=== PATIENT | male | born 1980 | race Caucasian/White ===

== ENCOUNTER 2018-01-04 03:43 | Emergency (ER) ==
[2018-01-04 03:57] VITALS: BP 112/77; TEMP 98.6; BMI 28.8
[2018-01-04] MEDS ORDERED: SODIUM CHLORIDE 500 ML IV STA ×2 (05:04→09:40)
--- NOTE | 2018-01-04 05:07 | ED.PDOC ---
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 goes to [facility]. Time Seen by Physician: 05:05 Mode of Arrival: Walk-In Information Source: Patient, Family Nursing and Triage Documentation Reviewed and Agree: Yes Reviewed sepsis parameters & appropriate labs ordered?: No System Inflammatory Response Syndrome: Not Applicable <LUCILLE OSBORNE - Last Filed: 01/04/18 07:53> <YAMILEX HARDIN - Last Filed: 01/04/18 10:10> ED Provider: Dr. YAMILEX HARDIN Chief Complaint: Fever Primary Care Provider: GREG ADAMS Sepsis Protocol: For patient's 13 years and over: Temp is 96.8 and below OR 101 and greater Pulse >90 BPM Resp >20/minute Acutely Altered Mental Status Are patient's symptoms suggestive of a new infection, such as: -Pneumonia -Skin, Soft Tissue -Endocarditis -UTI -Bone, Joint Infection -Implantable Device -Acute Abdominal Infection -Wound Infection -Meningitis -Blood Stream Catheter Infection -Unknown Miscellaneous Complaint Exam - Febrile Illness/Adult Complaint/Exam Symptoms Are: Still present Timing: Constant Episodes Lasting: Seconds Initial Severity: Moderate Current Severity: None Aggravating: Reports: None Alleviating: Reports: OTC Meds Associated Signs and Symptoms: Reports: Fluid intake. Denies: Headache, Short of air, Cough, Sore throat, Nausea, Vomiting, Chills, Diaphoresis, Dysuria, Arthralgia, Stiff neck, Myalgia, Rash, Altered mental status Pseudomonas Risk Factors: Reports: None Serious Bacterial Infection Risk Factors: Reports: Chemotherapy Current Antibiotic Use: No Related Surgical History: None Differential Diagnoses: Sepsis, Viremia Quality Indicators For Pneumonia/CAP: Blood Cultures-SCU admit <LUCILLE OSBORNE - Last Filed: 01/04/18 07:53> Review of Systems - Review Of Systems Constitutional: Reports: Fever, Malaise, Weakness Eyes: Reports: No symptoms Ears, Nose, Mouth, Throat: Reports: No symptoms Respiratory: Reports: No symptoms Cardiac: Reports: No symptoms GI: Reports: No symptoms : Reports: No symptoms Musculoskeletal: Reports: No symptoms Skin: Reports: No symptoms Neurological: Reports: No symptoms Endocrine: Reports: No symptoms Hematologic/Lymphatic: Reports: No symptoms All Other Systems: Reviewed and Negative <LUCILLE OSBORNE - Last Filed: 01/04/18 07:53> Past Medical History - Past Medical History Previously Healthy: Yes Endocrine: Reports: None Cardiovascular: Reports: None Respiratory: Reports: None Hematological: Reports: None Gastrointestinal: Reports: None Genitourinary: Reports: None Neuro/Psych: Reports: None Musculoskeletal: Reports: None Cancer: Reports: Other (metastatin testicular cancerm dr duque) - Surgical History General Surgical History: Reports: None - Family History Family History: Reports: None - Social History Smoking Status: Never smoker Hx Substance Use: No Alcohol Screening: None - Immunizations Tetanus Shot up to Date: Yes (2010) <LUCILLE OSBORNE - Last Filed: 01/04/18 07:53> Physical Exam - Physical Exam Appearance: Ill-appearing Eyes: JOSE LUIS, EOMI, Conjunctiva clear ENT: Ears normal, Nose normal, Oropharynx normal Respiratory: Airway patent, Breath sounds clear, Breath sounds equal, Respirations nonlabored Cardiovascular: RRR, Pulses normal, No rub, No murmur GI/: Soft, Nontender, No masses, Bowel sounds normal, No Organomegaly Musculoskeletal: Normal strength, ROM intact, No edema, No calf tenderness Skin: Warm, Dry, Normal color Neurological: Sensation intact, Motor intact, Reflexes intact, Cranial nerves intact, Alert, Oriented Psychiatric: Affect appropriate, Mood appropriate <LUCILLE OSBORNE - Last Filed: 01/04/18 07:53> Re-Evaluation - Re-Evaluation Time of Re-Evaluation: 07:50 (Assumed management from Dr Smith. He has spoken to oncologist at in [place]. Was recommended to transfer to hospital where patients oncologist is located. Patient ok'd transfer to [facility] [place]. ) Status: Unchanged Vital Signs Stable: Yes Appearance: NAD Lungs: Clear Skin: Warm and Dry Neuro: Alert and Oriented X3 CV: RRR Additional Comments: Awaiting for arrangements for transfer to [facility] in [place]. <YAMILEX HARDIN - Last Filed: 01/04/18 10:10> Critical Care Note - Critical Care Note Total Time (mins): 20 <LUCILLE OSBORNE - Last Filed: 01/04/18 07:53> Course - Course Hematology/Chemistry: 01/04/18 05:15 01/04/18 05:15 <LUCILLE OSBORNE - Last Filed: 01/04/18 07:53> - Course Hematology/Chemistry: 01/04/18 05:15 01/04/18 05:15 <YAMILEX HARDIN - Last Filed: 01/04/18 10:10> - Course Orders, Labs, Meds: Lab Review 01/04/18 01/04/18 01/04/18 05:15 05:15 05:15 WBC 0.67 L* RBC 4.27 L Hgb 13.1 L Hct 36.1 L MCV 84.5 MCH 30.7 MCHC 36.3 H RDW Coeff of Oswaldo 11.9 Plt Count 84 L Immature Gran % (Auto) 1.5 Neut % (Auto) 2.9 Lymph % (Auto) 23.9 [place] % (Auto) 67.2 H Eos % (Auto) 3.0 Baso % (Auto) 1.5 Immature Gran # (Auto) 0.0 Neut # 0.0 L Lymph # 0.2 L [place] # 0.5 Eos # 0.0 Baso # 0.0 Sodium 134 L Potassium 3.0 L Chloride 96 L Carbon Dioxide 25 Anion Gap 16.0 BUN 22 H Creatinine 1.40 H Estimated GFR (MDRD) 56.00 BUN/Creatinine Ratio 15.71 Glucose 113 H Lactic Acid 7.7 Calcium 9.3 Total Bilirubin 1.1 AST 11 L ALT 34 Alkaline Phosphatase 59 Total Protein 7.0 Albumin 3.0 L Globulin 4.0 Albumin/Globulin Ratio 0.75 Procalcitonin Urine Color Urine Clarity Urine pH Ur Specific Willits Urine Protein Urine Glucose (UA) Urine Ketones Urine Blood Urine Nitrite Urine Bilirubin Urine Urobilinogen Ur Leukocyte Esterase Urine Microscopic RBC Urine Microscopic WBC Ur Squamous Epith Cells Amorphous Sediment Urine Bacteria Urine Mucus Influenza A (Rapid) Influenza B (Rapid) 01/04/18 01/04/18 01/04/18 05:15 05:15 05:25 WBC RBC Hgb Hct MCV MCH MCHC RDW Coeff of Oswaldo Plt Count Immature Gran % (Auto) Neut % (Auto) Lymph % (Auto) [place] % (Auto) Eos % (Auto) Baso % (Auto) Immature Gran # (Auto) Neut # Lymph # [place] # Eos # Baso # Sodium Potassium Chloride Carbon Dioxide Anion Gap BUN Creatinine Estimated GFR (MDRD) BUN/Creatinine Ratio Glucose Lactic Acid Calcium Total Bilirubin AST ALT Alkaline Phosphatase Total Protein Albumin Globulin Albumin/Globulin Ratio Procalcitonin 0.78 Urine Color Yellow Urine Clarity Clear Urine pH 6.0 Ur Specific Will[place] 1.020 Urine Protein 2+ Urine Glucose (UA) Negative Urine Ketones Negative Urine Blood 1+ Urine Nitrite Negative Urine Bilirubin Negative Urine Urobilinogen 1.0 Ur Leukocyte Esterase Negative Urine Microscopic RBC 5-10 Urine Microscopic WBC 2-5 Ur Squamous Epith Cells 10-20 Amorphous Sediment Trace Urine Bacteria 1+ Urine Mucus 1+ Influenza A (Rapid) Negative by naat Influenza B (Rapid) Negative by naat Orders Category Date Time Status ED IV/MEDIPORT/POWERPORT .ONCE EMERGENCY 01/04/18 05:04 Active BLOOD CULTURE (ED ONLY) Stat LAB 01/04/18 05:15 Received CBC W/ AUTO DIFF Stat LAB 01/04/18 05:15 Completed COMPREHENSIVE METABOLIC PANEL Stat LAB 01/04/18 05:15 Completed FLU A/B MOLECULAR Stat LAB 01/04/18 05:15 Completed LACTIC ACID Stat LAB 01/04/18 05:15 Completed PROCALCITONIN Stat LAB 01/04/18 05:15 Completed URINALYSIS C & S IF INDICATED Stat LAB 01/04/18 05:25 Completed URINE CULTURE Stat LAB 01/04/18 05:25 Received 0.9 % Sodium Chloride [Saline Flush] MEDS 01/04/18 05:04 Active 1 syr IVF PRN PRN Acetaminophen [Tylenol] MEDS 01/04/18 09:10 Discontinued 650 mg PO ONCE STA Ceftriaxone Sodium [Rocephin] MEDS 01/04/18 09:18 Discontinued 1 gm .ROUTE .STK-MED ONE Ceftriaxone Sodium [Rocephin] 1 gm MEDS 01/04/18 07:49 Discontinued 0.9 % Sodium Chloride [Sodium Chloride] 50 ml IV ONCE Lorazepam Inj [Ativan] MEDS 01/04/18 08:51 Discontinued 0.5 mg IVP ONCE STA Potassium Chloride [K-Dur] MEDS 01/04/18 07:49 Discontinued 40 meq PO ONCE STA Sodium Chloride 0.9% [Sodium Chloride] 500 ml MEDS 01/04/18 05:04 Discontinued IV BOLUS Sodium Chloride 0.9% [Sodium Chloride] 500 ml MEDS 01/04/18 09:40 Active IV BOLUS Vancomycin HCl [Vancomycin] 1,000 mg MEDS 01/04/18 07:52 Discontinued 0.9 % Sodium Chloride [Sodium Chloride] 200 ml IV ONCE CHEST, 1V AP ONLY Stat RADS 01/04/18 09:09 Taken Medications Generic Name Dose Route Start Last Admin Trade Name Cal PRN Reason Stop Dose Admin Sodium Chloride 500 mls @ 500 mls/hr 01/04/18 09:40 Sodium Chloride IV 01/04/18 10:39 BOLUS STA Sodium Chloride 1 syr 01/04/18 05:04 01/04/18 05:22 Saline Flush IVF 1 syr PRN PRN Administration To flush IV Discontinued Medications Generic Name Dose Route Start Last Admin Trade Name Frepro PRN Reason Stop Dose Admin Acetaminophen 650 mg 01/04/18 09:10 01/04/18 09:32 Tylenol PO 01/04/18 09:11 650 mg ONCE STA Administration Sodium Chloride 500 mls @ 500 mls/hr 01/04/18 05:04 01/04/18 05:21 Sodium Chloride IV 01/04/18 06:03 500 mls/hr BOLUS STA Administration Ceftriaxone Sodium 1 gm/ 50 mls @ 75 mls/hr 01/04/18 07:49 01/04/18 09:32 Sodium Chloride IV 01/04/18 08:28 75 mls/hr ONCE STA Administration Vancomycin HCl 1,000 mg/ 200 mls @ 100 mls/hr 01/04/18 07:52 Sodium Chloride IV 01/04/18 09:51 ONCE STA Lorazepam 0.5 mg 01/04/18 08:51 01/04/18 09:10 Ativan IVP 01/04/18 08:52 0.5 mg ONCE STA Administration Potassium Chloride 40 meq 01/04/18 07:49 01/04/18 09:32 K-Dur PO 01/04/18 07:50 40 meq ONCE STA Administration Vital Signs: Temp Pulse Resp BP Pulse Ox 01/04/18 03:44 98.6 F 106 H 20 112/77 98 Departure - Departure Time of Disposition: 07:50 Pt referred to PMD for follow-up: Yes IPMP verified?: No Disposition Discussed With: Patient, Family <LUCILLE OSBORNE - Last Filed: 01/04/18 07:53> <AYMILEX HARDIN - Last Filed: 01/04/18 10:10> - Departure Disposition: TSF SHORT-TRM HOSP Discharge Problem: Febrile illness, acute Neutropenia Qualifiers: Neutropenia type: secondary to cancer chemotherapy Qualified Code(s): D70.1 - Agranulocytosis secondary to cancer chemotherapy Instructions: Fever in Adults (GEN) Condition: Stable Additional Instructions: Increase Hydration Tylenol Keep f/u with PMD Allergies/Adverse Reactions: Allergies dexamethasone Adverse Reaction (Verified 01/04/18 03:57) HICCUPS Home Medications: Ambulatory Orders Dexlansoprazole [Dexilant] 60 mg PO DAILY 01/04/18 Gabapentin 300 mg PO 5XD 01/04/18 Hydrocodone/Acetaminophen [[place]ster 7.5-325 Tablet] 1 each PO Q6H PRN 01/04/18 Lorazepam [Ativan] 0.5 mg PO BID 01/04/18 Promethazine HCl [Phenergan Tab] 25 mg PO Q6H PRN 01/04/18
[2018-01-04] MEDS ORDERED: ROCEPHIN 1 GM in SODIUM CHLORIDE 50 ML IV STA (07:49)
[2018-01-04] MEDS ORDERED: K-DUR PO STA (07:49)
[2018-01-04] MEDS ORDERED: VANCOMYCIN 1,000 MG in SODIUM CHLORIDE 200 ML IV STA (07:52)
[2018-01-04] MEDS ORDERED: ATIVAN IVP STA (08:51)
[2018-01-04] MEDS ORDERED: TYLENOL PO STA (09:10)
[2018-01-04] MEDS ORDERED: ROCEPHIN ONE (09:18)
--- NOTE | 2018-01-04 10:40 | DI ---
EXAM: Chest one view HISTORY: Fever COMPARISON: None TECHNIQUE: Single view of the chest was performed FINDINGS: The lungs are clear. Suture lines suggested in the left lung. There is no pleural effusion or pneumothorax. The heart is normal in size. The mediastinal contour is normal. There are no acu te abnormalities of the bones. IMPRESSION: No acute cardiopulmonary process.
== END 2018-01-04 10:11 | disposition short-term general hospital (02) ==
LOC: ED 03:43
DX: D70.1 Agranulocytosis secondary to cancer chemotherapy (principal); R50.9 Fever, unspecified; C62.90 Malignant neoplasm of unspecified testis, unspecified whether descended or undescended; C79.9 Secondary malignant neoplasm of unspecified site; R53.1 Weakness; R53.83 Other fatigue; Z79.899 Other long term (current) drug therapy; R00.0 Tachycardia, unspecified
CPT/HCPCS: 36415; 80053; 81001; 83605; 84145; 85025; 87040; 87086; 87502; 96361; 96365; 96375; 99285

== ENCOUNTER 2018-03-28 13:00 | Outpatient (RCR) ==
--- NOTE | 2018-03-10 09:10 | RS.OPPTEV2 ---
Date of Note: 03/07/18 Visit #: 1 Date of Evaluation: 03/07/18 Payer Source: Insurance Treatment Diagnosis: Weakness, gait abnormality History of Condition/Mechanism of Injury:: Patient has undergone treatment for Metastatic Testicular Cancer. Treatment has included Orchiectomy and RPLND, and Chemotherapy. He recently had a Stem Cell Transplant and was discharged home from the hospital this past Saturday03/03/18. Prior Level of Function.....Patient was independent with: ADL's, Self Care, Work /Vocation, Caregiving, Ambulation/Mobility, Community Integration/Access Functional Limitations: Self Care ( helps with showering/bathing), ADL's, Lifting, Squatting, Ambulation, Community Access/Integration Current Subjective/complaints:: Reports becoming weak from treatment. He received some Physical Therapy while he was in the hospital and was sent home with a rolling walker. He reports having neuropathy in the bottom of both feet. Also reports getting short of breath with activity, including prolonged ambulation. He denies any dizziness or vision impairment when he gets short of breath. He and his have a pulse oximeter to monitor his HR and oxygen saturation. He reports that he is sleeping well. Also reports having no back or LE pain. He is using the walker with ambulation inside and outside his home. He has a few steps with bilateral railing going into the garage. Medical History Medical History Comments:: Metastatic Testicular Cancer Surgical History Comments:: Orchiectomy, Retroperitoneal lymph node dissection, thoracotomy X2 Smoking Status: Never smoker Hx Home Medications: Gabapentin, Prontonix, Potassium Chloride, Potassium Phosphate, sodium phosphate, compazine, Magnesium Oxide Patient's Goals: His goal is to regain strength to return to his previous level of function and ambulate without an assistive device. Functional Outcome Measure Tinetti: 19 (=32% impairment) - G Codes & Severity Modifier G Codes & Modifier: NA Source of G Code score: NA Observation - Observation Inspection: Patient presents to department ambulating with a rolling walker. HR 108 and pulse O2 99% prior to beginning evaluation. Gait - Gait Pattern Gait Comments: Ambulates with rolling walker, independently. Demonstrates light ataxia of the trunk and LE's. Performs sit to stand transfer independently with smooth coordinated movements and with good safety. General Range of Motion: Bilateral UE and LE AROM is WFL's. Muscle Strength: Bilateral UE strength is grossly 4/5 throughout. Trunk strength 4/5. LE strength 4-/5 throughout. Sensation - Sensation Comments: Impaired sensation to the plantar aspect of both feet. Sensation intact all else of bilateral LE's. Balance - Sitting Balance Static Sitting Balance: Good Dynamic Sitting Balance: Good - Standing Balance Static Standing Balance: Good Dynamic Standing Balance: Good (-) Coordination - Tests Bilateral Heel to [place]: Normal/Intact Toe Tapping: Normal/Intact Interventions - Exercise/Activities/Manual Therapy Exercises/Activities: Patient instructed in exercises to begin for home of SLR, bridging, resisted shoulder horizontal abduction and ER. HR 126, pulse ox 97%, after performing exercises for HEP instruction. Manual Therapy: NA HOME EXERCISE PROGRAM: SLR, bridging, resisted shoulder horizontal abduction and ER. - Charges Timed Code Treatment Minutes: 0 Total Treatment Time: 50 mins Procedures billed for this date of service:: Eval Medium EVALUATION COMPLEXITY LEVEL EVALUATION COMPLEXITY LEVEL: HISTORY: High (Metastatic Testicular Cancer, history of surgery and chemotherapy, recent Stem Cell transplant), EXAM OF BODY SYSTEMS: Medium (impaired strength, balance, ambulation, cardiovascular system) , CLINICAL PRESENTATION: Medium, CLINICAL DECISION MAKING: Medium Assessment Assessment: Patient presents s/p Stem Cell Transplant. He reports general weakness that has decreased his functional ability with ADL's and ambulation. He requires a rolling walker at this time for safety. Reports shortness of breath and tachycardia with activity. He demonstrates general weakness throughout the UE's, trunk, and LE's. He shows great potential to regain his strength and return to his previous level of function. Patient Education: Education of diagnosis, Home Exercise Program, Education of Plan of Care Rehab Potential: Good Short Term Goals Goal #1: Pt independent and compliant with HEP. Goal to be met by: 03/20/18 Goal #2: Trunk strength 4+/5. Goal to be met by: 03/24/18 Goal #3: LE strength grossly 4/5. Goal to be met by: 03/24/18 Care Home Goals Goal #1: Pt knows HEP and to continue ex's to maintain functional level at D/C. Goal to be met by: 04/21/18 Goal #2: Score on Tinetti Assessement . Goal to be met by: 04/21/18 Goal #3: Pt to amb. community distances w/o assistive device independently. Goal to be met by: 04/21/18 Goal #4: Pt able to perform all ADL's and return to work without limitation. Goal to be met by: 04/21/18 Plan - Treatment to be Provided Procedures: Therapeutic Exercises, Therapeutic Activity, Neuromuscular Rehab, Patient Education Modalities: No Modalities - Treatment Plan Frequency: 3 X week Duration: 6 weeks ORDER # VISITS AND/OR THROUGH DATE: 04/21/18 - Treatment Code (1) Muscle weakness (generalized) Code(s): M62.81 - MUSCLE WEAKNESS (GENERALIZED) Comments: M62.81 (2) Gait abnormality Code(s): R26.9 - UNSPECIFIED ABNORMALITIES OF GAIT AND MOBILITY Comments: R26.9 (3) Decreased strength, endurance, and mobility Code(s): Z74.09 - OTHER REDUCED MOBILITY Comments: Z74.09 (4) History of stem cell transplant Code(s): Z94.84 - STEM CELLS TRANSPLANT STATUS Comments: Z94.84
--- NOTE | 2018-03-10 14:19 | RS.OPPTDN ---
Subjective Date of Note: 03/10/18 Visit #: 2 Date of Evaluation: 03/07/18 Payer Source: Insurance Treatment Diagnosis: Weakness, gait abnormality Current Subjective/complaints:: Patient enters clinic today without walker, reports feeling , "pretty good. " Pain Assessment - Pain Description Pain Description: Burning Other Comments regarding Pain:: neuropathy in feet Interventions - Exercise/Activities/Manual Therapy Exercises/Activities: 50 mins. total of supine and sested ther. exerise.Supine exercises consist of 3/10 - 15 reps. each ankle pumps with green t-band resistance,3# on ankles for SAQ's,hooklying hip flexion ,and SLR's.Ended session on seated leg press with 90# resistance using both legs.O2 sats @91 to 99 %,HR 112 initially ,dropped to 90 in supine.The highest HR with leg press was 112 to 127 . Total minutes of Exercise: 50 Manual Therapy: NA Total minutes of Manual Therapy: 0 HOME EXERCISE PROGRAM: SLR, bridging, resisted shoulder horizontal abduction and ER. - Charges Timed Code Treatment Minutes: 50 Total Treatment Time: 50 Procedures billed for this date of service:: ex 3 Assessment: Patient has very good technique with resistive exercises,especially with eccentrics.He has no c/o pain and minimal SOA with exercises.He is attentive and motivated to improve. Patient Education: Body/Joint mechanics, Home Exercise Program, Activity Modification, Education of Plan of Care Short Term Goals Goal #1: Pt independent and compliant with HEP. Goal to be met by: 03/20/18 Progress towards Goal:: Progressing Goal #2: Trunk strength 4+/5. Goal to be met by: 03/24/18 Progress towards Goal:: Progressing Goal #3: LE strength grossly 4/5. 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 Goal to be met by: 04/21/18 Goal #2: Score on Tinetti Assessement 28. Goal to be met by: 04/21/18 Goal #3: Pt to amb. community distances w/o assistive device independently. Goal to be met by: 04/21/18 Goal #4: Pt able to perform all ADL's and return to work without limitation. Goal to be met by: 04/21/18 Plan PLAN OF CARE EXPIRES ON:: 04/21/18 ORDER # VISITS AND/OR THROUGH DATE: 04/21/18 PLAN: Continue PT to increase strength in all extremities ,resulting in less difficult ADL's.
--- NOTE | 2018-03-12 14:23 | RS.OPPTDN ---
Subjective Date of Note: 03/12/18 Visit #: 3 Date of Evaluation: 03/07/18 Payer Source: Insurance Treatment Diagnosis: Weakness, gait abnormality Current Subjective/complaints:: Patient reports no unusual fatigue or soreness after last PT session. Interventions - Exercise/Activities/Manual Therapy Exercises/Activities: 60 mins. total of AROM ,preceded by 5 mins. on bike for warmup. 3/15 reps. , seated yellow theraband exercises for hip abd /adduction , seated hip flexion and LAQ's with 3 # resistance .Standing mini-squats using therapy ball against wall,then 90 # resistance on leg press ,also 3 sets.O2 sats consistently in the mid 90 's (%),hr 115 to 145 with exercise. Total minutes of Exercise: 60 Manual Therapy: NA Total minutes of Manual Therapy: 0 HOME EXERCISE PROGRAM: SLR, bridging, resisted shoulder horizontal abduction and ER. - Charges Timed Code Treatment Minutes: 60 Total Treatment Time: 65 Procedures billed for this date of service:: ex 4 Assessment: Patient requires more rest periods with standing due to fatigue , but recovers within 30 secs. of each activity.He has no report of pain, continues to have good eccentric control ni the quads. Patient Education: Education of diagnosis, Body/Joint mechanics, Home Exercise Program, Home Safety, Activity Modification, Education of Plan of Care Patient demonstrates compliance with HEP?: Yes Short Term Goals Goal #1: Pt independent and compliant with HEP. Goal to be met by: 03/20/18 Progress towards Goal:: Progressing Goal #2: Trunk strength 4+/5. Goal to be met by: 03/24/18 Progress towards Goal:: Progressing Goal #3: LE strength grossly 4/5. 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 Goal to be met by: 04/21/18 Progress towards goal: Progressing Goal #2: Score on Tinetti Assessement 28/28. Goal to be met by: 04/21/18 Goal #3: Pt to amb. community distances w/o assistive device independently. Goal to be met by: 04/21/18 Goal #4: Pt able to perform all ADL's and return to work without limitation. Goal to be met by: 04/21/18 Plan PLAN OF CARE EXPIRES ON:: 04/21/18 ORDER # VISITS AND/OR THROUGH DATE: 04/21/18 PLAN: Continue PT to return patient to highest level of function,resulting in safer ADL's.
--- NOTE | 2018-03-14 14:32 | RS.OPPTDN ---
Subjective Date of Note: 03/14/18 Visit #: 4 Date of Evaluation: 03/07/18 Payer Source: Insurance Treatment Diagnosis: Weakness, gait abnormality Current Subjective/complaints:: Reports doing exercisesat home with theraband .He has no pain today ,fatigue is the main concern. Interventions - Exercise/Activities/Manual Therapy Exercises/Activities: 60 mins. total of AROM ,preceded by 2 mins. on elliptical then 5 mins. on bike for warmup. Standing balance /strengthening exercises for step-ups ,side-steps,weaving,mini-squats with therapy ball against wall.Seated UE exercise on multigym with 10 # resistamce. Total minutes of Exercise: 60 Manual Therapy: NA Total minutes of Manual Therapy: 0 HOME EXERCISE PROGRAM: SLR, bridging, resisted shoulder horizontal abduction and ER. - Charges Timed Code Treatment Minutes: 60 Total Treatment Time: 60 Procedures billed for this date of service:: ex 2,NMR 2 Assessment: Patient requires frequent rest periods with standing exercises,but no pain present.He is able to self -correct his balance with higher level balance challenges.He is motivated to improve . Patient Education: Body/Joint mechanics, Home Exercise Program, Home Safety, Activity Modification, Education of Plan of Care Patient demonstrates compliance with HEP?: Yes Short Term Goals Goal #1: Pt independent and compliant with HEP. Goal to be met by: 03/20/18 Progress towards Goal:: Progressing Goal #2: Trunk strength 4+/5. Goal to be met by: 03/24/18 Progress towards Goal:: Progressing Goal #3: LE strength grossly 4/5. Goal to be met by: 03/24/18 Progress towards Goal:: Progressing Well Tender Goals Goal #1: Pt knows HEP and to continue ex's to maintain functional level at D/C. Goal to be met by: 04/21/18 Progress towards goal: Progressing Goal #2: Score on Tinetti Assessement 28/28. Goal to be met by: 04/21/18 Goal #3: Pt to amb. community distances w/o assistive device independently. Goal to be met by: 04/21/18 Progress towards goal: Met Goal #4: Pt able to perform all ADL's and return to work without limitation. Goal to be met by: 04/21/18 Plan PLAN OF CARE EXPIRES ON:: 04/21/18 ORDER # VISITS AND/OR THROUGH DATE: 04/21/18 PLAN: Continue PT to achieve highest level of function for safer ADL's.
--- NOTE | 2018-03-17 15:42 | RS.OPPTDN ---
Subjective Date of Note: 03/17/18 Visit #: 5 Date of Evaluation: 03/07/18 Payer Source: Insurance Treatment Diagnosis: Weakness, gait abnormality Current Subjective/complaints:: No c/o,reports doing his exercises at home.He enters clinic today without use of a walker.He also feels his strength is improving as a result of the therapy sessions. Interventions - Exercise/Activities/Manual Therapy Exercises/Activities: Patient begins on exercise bike x 10 mins,elliptical x 2 mins. 12" step-ups x 3 sets,ranging from 17 -23 reps.Standing scapular motion exercises with 10 # resistance,then punching motion ,both exercises done on the multi-gym.O2 sats consistently in the mid to upper 90's %.HR 115 to 145 generally ,with one brief period of HR at165 ,but no complaints.He understands the maximum heart and target HR with exercises. Total minutes of Exercise: 45 Manual Therapy: NA Total minutes of Manual Therapy: 0 HOME EXERCISE PROGRAM: SLR, bridging, resisted shoulder horizontal abduction and ER. - Charges Timed Code Treatment Minutes: 45 Total Treatment Time: 55 Procedures billed for this date of service:: ex 3 Assessment: Patient has improved dynamic balance as the LE strength improves.He has minimal loss of balance doing the 12" steps,but able to self -correct.He is very motivated to improve,compliant to HEP recommendations. Patient Education: Home Exercise Program, Home Safety, Activity Modification, Education of Plan of Care Patient demonstrates compliance with HEP?: Yes Short Term Goals Goal #1: Pt independent and compliant with HEP. Goal to be met by: 03/20/18 Progress towards Goal:: Progressing Goal #2: Trunk strength 4+/5. Goal to be met by: 03/24/18 Progress towards Goal:: Progressing Goal #3: LE strength grossly 4/5. Goal to be met by: 03/24/18 Progress towards Goal:: Progressing [facility] Goals Goal #1: Pt knows HEP and to continue ex's to maintain functional level at D/C. Goal to be met by: 04/21/18 Progress towards goal: Progressing Goal #2: Score on Tinetti Assessement 28/28. Goal to be met by: 04/21/18 Goal #3: Pt to amb. community distances w/o assistive device independently. Goal to be met by: 04/21/18 Progress towards goal: Met Goal #4: Pt able to perform all ADL's and return to work without limitation. Goal to be met by: 04/21/18 Plan PLAN OF CARE EXPIRES ON:: 04/21/18 ORDER # VISITS AND/OR THROUGH DATE: 04/21/18 PLAN: Continue PT to achieve highest level of function for safe ADL's and return to work safely.
--- NOTE | 2018-03-21 14:33 | RS.OPPTDN ---
Subjective Date of Note: 03/21/18 Visit #: 6 Date of Evaluation: 03/07/18 Payer Source: Insurance Treatment Diagnosis: Weakness, gait abnormality Current Subjective/complaints:: Patient reports feeling stronger,feels the therapy is helping .He also reports no longer using the walker at home or in public. Interventions - Exercise/Activities/Manual Therapy Exercises/Activities: Patient begins on exercise bike x 5 mins,elliptical x 5 mins. 3/15 reps. each exercise of standing scapular motion exercises with 10 # resistance,then punching motion ,both exercises done on the multi-gym in standing .O2 sats consistently in the mid to upper 90's %.HR 115 to 150 generally .Ended sesion on leg press @ 120 # using both LE's. Total minutes of Exercise: 55 Manual Therapy: NA Total minutes of Manual Therapy: 0 HOME EXERCISE PROGRAM: SLR, bridging, resisted shoulder horizontal abduction and ER. - Charges Timed Code Treatment Minutes: 55 Total Treatment Time: 60 Procedures billed for this date of service:: ex 4 Assessment: Patient progressing well,able to increase resistance for UE/LE exercises.He has steady transfers,and steadier gait.We discussed his POC for next week,and beginning the D/C plan as he is progressing with the rehab goals. Patient Education: Body/Joint mechanics, Home Exercise Program, Home Safety, Activity Modification, Education of Plan of Care Patient demonstrates compliance with HEP?: Yes Short Term Goals Goal #1: Pt independent and compliant with HEP. Goal to be met by: 03/20/18 Progress towards Goal:: Partially Met Goal #2: Trunk strength 4+/5. Goal to be met by: 03/24/18 Progress towards Goal:: Partially Met Goal #3: LE strength grossly 4/5. 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 Goal to be met by: 04/21/18 Progress towards goal: Progressing Goal #2: Score on Tinetti Assessement . Goal to be met by: 04/21/18 Progress towards goal: Progressing Goal #3: Pt to amb. community distances w/o assistive device independently. Goal to be met by: 04/21/18 Progress towards goal: Met Goal #4: Pt able to perform all ADL's and return to work without limitation. Goal to be met by: 04/21/18 Progress towards goal: Progressing Plan PLAN OF CARE EXPIRES ON:: 03/21/18 ORDER # VISITS AND/OR THROUGH DATE: 04/21/18 PLAN: Cont. skilled PT to achieve maximum strength in extremities and core , return to PLOF.
--- NOTE | 2018-03-26 15:35 | RS.OPPTDN ---
Subjective Date of Note: 03/26/18 Visit #: 7 Date of Evaluation: 03/07/18 Payer Source: Insurance Treatment Diagnosis: Weakness, gait abnormality Current Subjective/complaints:: Reports the therapy is helping ,continues to feel stronger. Interventions - Exercise/Activities/Manual Therapy Exercises/Activities: Patient begins on exercise bike x 10 mins,elliptical x 7 mins. 3/15 reps. each exercise of standing scapular motion exercises with 20 # resistance,then punching motion ,both exercises done on the multi-gym in standing .O2 sats consistently in the mid to upper 90's %.HR 115 to 150 generally .Ended sesion on leg press @ 135 # using both LE's. Total minutes of Exercise: 62 Manual Therapy: NA Total minutes of Manual Therapy: 0 HOME EXERCISE PROGRAM: SLR, bridging, resisted shoulder horizontal abduction and ER.Black theraband given to patient today for home use. - Charges Timed Code Treatment Minutes: 45 Total Treatment Time: 62 Procedures billed for this date of service:: ex 3 Assessment: Tolerates all exercises with mild SOA,but no report of pain .He has steady transfers and gait.He has improved LE and core strength. Patient Education: Body/Joint mechanics, Home Exercise Program, Education of Plan of Care Patient demonstrates compliance with HEP?: Yes Short Term Goals Goal #1: Pt independent and compliant with HEP. Goal to be met by: 03/20/18 Progress towards Goal:: Partially Met Goal #2: Trunk strength 4+/5. Goal to be met by: 03/24/18 Progress towards Goal:: Partially Met Goal #3: LE strength grossly 4/5. 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 Goal to be met by: 04/21/18 Progress towards goal: Partially Met Goal #2: Score on Tinetti Assessement 28/28. Goal to be met by: 04/21/18 Progress towards goal: Progressing Goal #3: Pt to amb. community distances w/o assistive device independently. Goal to be met by: 04/21/18 Progress towards goal: Met Goal #4: Pt able to perform all ADL's and return to work without limitation. Goal to be met by: 04/21/18 Progress towards goal: Progressing Plan PLAN OF CARE EXPIRES ON:: 04/21/18 ORDER # VISITS AND/OR THROUGH DATE: 04/21/18 PLAN: Continue PT to return patient to highest possible level of function.
--- NOTE | 2018-03-28 14:46 | RS.OPPTDC ---
Date of Discharge: 03/28/18 Date of Evaluation: 03/07/18 Number of Visits: 8 Treatment Diagnosis: Weakness, gait abnormality Current Complaints/Gains: Pleased with his progress,agrees with D/C paln today, is doing his HEP without difficulty. Functional Outcome Measure Tinetti: 28 - G Codes & Severity Modifier G Codes & Modifier: NA Source of G Code score: NA Observation - Observation Posture: Normal Gait - Gait Pattern General Gait Pattern Observation: No Deviations/Normal General Range of Motion: WNL Muscle Strength: 4+ to 5- /5 Interventions - Exercise/Activities/Manual Therapy Exercises/Activities: Patient begins on elliptical x 10 mins. 3/15 reps. each exercise of standing scapular motion exercises with 20 # resistance,then punching motion ,both exercises done on the multi-gym in standing .O2 sats consistently in the mid to upper 90's %.HR 115 to 150 generally .Ended session on leg press @ 165 # using both LE's. Total minutes of Exercise: 60 Manual Therapy: NA Total minutes of Manual Therapy: 0 HOME EXERCISE PROGRAM: SLR, bridging, resisted shoulder horizontal abduction and ER.Black theraband given to patient today for home use. - Charges Timed Code Treatment Minutes: 50 Total Treatment Time: 60 Procedures billed for this date of service:: ex 3 Assessment Assessment: Patient met all rehab goals,except has not returned to work .He is aware of D/C plan today,good knowledge of HEP and energy conservation. Patient Education: Education of diagnosis, Body/Joint mechanics, Home Exercise Program, Home Safety, Activity Modification, Education of Plan of Care Rehab Potential: Good Short Term Goals Goal #1: Pt independent and compliant with HEP. Goal to be met by: 03/20/18 Progress towards Goal:: Met Goal #2: Trunk strength 4+/5. Goal to be met by: 03/24/18 Progress towards Goal:: Met Goal #3: LE strength grossly 4/5. 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 Goal to be met by: 04/21/18 Progress towards goal: Met Goal #2: Score on Tinetti Assessement . Goal to be met by: 04/21/18 Progress towards goal: Met Goal #3: Pt to amb. community distances w/o assistive device independently. Goal to be met by: 04/21/18 Progress towards goal: Met Goal #4: Pt able to perform all ADL's and return to work without limitation. Goal to be met by: 04/21/18 Progress towards goal: Progressing Plan Reason for Discharge:: All Goals Met (D/C)
== END 2018-03-31 23:59 ==
PROVIDERS: ATTEND Internal Medicine Hematology
DX: C62.10 Malignant neoplasm of unspecified descended testis (principal); R26.9 Unspecified abnormalities of gait and mobility; M62.81 Muscle weakness (generalized); Z74.09 Other reduced mobility; Z94.84 Stem cells transplant status

== ENCOUNTER 2018-08-29 16:55 | Outpatient (CLI) | END 2018-08-29 16:56 | disposition home or self-care (01) | LOC: LAB 16:55 | PROVIDERS: ATTEND Internal Medicine Nephrology | DX: N39.0 Urinary tract infection, site not specified (principal) | CPT/HCPCS: 81001; 87086 ==

== ENCOUNTER 2019-03-26 17:00 | Outpatient (CLI) | END 2019-03-26 17:01 | disposition home or self-care (01) | LOC: LAB 17:00 | PROVIDERS: ATTEND Internal Medicine Nephrology | DX: N18.3 Chronic kidney disease, stage 3 (moderate) (principal) | CPT/HCPCS: 36415; 80069; 81001; 82306; 82570; 83735; 83970; 84156; 84550; 85027 ==